=== PATIENT | female | born 1975 ===

== ENCOUNTER 2021-10-18 12:57 | Emergency (ER) | payer SELFPAY ==
[2021-10-18] MEDS ORDERED: IPRATROPIUM 0.02% NEBU 2.5 ML IH ONE (15:53)
[2021-10-18] MEDS ORDERED: ALBUTEROL 2.5 MG/3 ML NEBU IH ONE (15:53)
[2021-10-18] MEDS ORDERED: ONDANSETRON 4 MG ODT TAB PO ONE (15:55)
[2021-10-18] MEDS ORDERED: dexAMETHasone 4 MG/ML VIAL IM ONE (15:55)
--- NOTE | 2021-10-18 16:24 | XRay Report ---
CHEST 2 VIEWS INDICATION / CLINICAL INFORMATION: Dyspnea. COMPARISON: None available. FINDINGS: SUPPORT DEVICES: None. HEART / MEDIASTINUM: No significant abnormality. LUNGS / PLEURA: No significant pulmonary or pleural abnormality. No pneumothorax. ADDITIONAL FINDINGS: No significant additional findings. IMPRESSION: 1. No significant abnormality. Signer Name: Arely Lo MD Signed: 10/18/2021 4:20 PM Workstation Name: [id number]
--- NOTE | 2021-10-18 17:18 | Emergency Department Report ---
ED Shortness of Breath HPI - General Chief Complaint: Dyspnea/Respdistress Stated Complaint: ASTHMA/VOMITTING/SWOLLEN GLAND/COUGHING Time Seen by Provider: 10/18/21 15:45 Source: patient Mode of arrival: Ambulatory Limitations: No Limitations - History of Present Illness Initial Comments: pt presents to ed with complaint of asthma flare up. MD Complaint: shortness of breath -: Gradual, days(s) Improves With: oxygen, bronchodilators Worsens With: exertion Known History Of: asthma Context: recent URI - Related Data Previous Rx's Medication Instructions Recorded Last Taken Type Albuterol Mdi (or & Nicu Only) 2 puff IH QID PRN #8.5 gram 10/18/21 Unknown Rx [ProAir HFA Inhaler] Azithromycin [Zithromax Z-TRACY] 250 mg PO DAILY #6 10/18/21 Unknown Rx Ondansetron [Zofran Odt] 4 mg PO Q8HR #14 tab.rapdis 10/18/21 Unknown Rx methylPREDNISolone [Medrol 4MG 4 mg PO DAILY #1 10/18/21 Unknown Rx DOSEPAK (21 tabs)] Allergies Allergy/AdvReac Type Severity Reaction Status Date / Time No Known Allergies Allergy Verified 10/18/21 13:55 ED Review of Systems ROS: Stated complaint: ASTHMA/VOMITTING/SWOLLEN GLAND/COUGHING Other details as noted in HPI Constitutional: denies: chills, fever Eyes: denies: eye pain, eye discharge, vision change ENT: denies: ear pain, throat pain Respiratory: denies: cough, shortness of breath, wheezing Cardiovascular: denies: chest pain, palpitations Endocrine: no symptoms reported Gastrointestinal: denies: abdominal pain, nausea, diarrhea Genitourinary: denies: urgency, dysuria, discharge Musculoskeletal: denies: back pain, joint swelling, arthralgia Skin: denies: rash, lesions Neurological: denies: headache, weakness, paresthesias Psychiatric: denies: anxiety, depression Hematological/Lymphatic: denies: easy bleeding, easy bruising ED Past Medical Hx - Past Medical History Previous Medical History?: No Hx Hypertension: No Hx CVA: No Hx Asthma: Yes - Social History Smoking Status: Former Smoker Substance Use Type: None - Medications Home Medications: Home Medications Medication Instructions Recorded Confirmed Last Taken Type Albuterol Mdi (or & Nicu Only) 2 puff IH QID PRN #8.5 gram 10/18/21 Unknown Rx [ProAir HFA Inhaler] Azithromycin [Zithromax Z-TRACY] 250 mg PO DAILY #6 10/18/21 Unknown Rx Ondansetron [Zofran Odt] 4 mg PO Q8HR #14 tab.rapdis 10/18/21 Unknown Rx methylPREDNISolone [Medrol 4MG 4 mg PO DAILY #1 10/18/21 Unknown Rx DOSEPAK (21 tabs)] ED Physical Exam - General Limitations: No Limitations General appearance: alert, in no apparent distress - Head Head exam: Present: atraumatic, normocephalic - Eye Eye exam: Present: normal appearance - ENT ENT exam: Present: mucous membranes moist - Neck Neck exam: Present: normal inspection - Respiratory Respiratory exam: Present: normal lung sounds bilaterally. Absent: respiratory distress - Cardiovascular Cardiovascular Exam: Present: regular rate, normal rhythm. Absent: systolic murmur, diastolic murmur, rubs, gallop - GI/Abdominal GI/Abdominal exam: Present: soft, normal bowel sounds - Extremities Exam Extremities exam: Present: normal inspection - Back Exam Back exam: Present: normal inspection - Neurological Exam Neurological exam: Present: alert, oriented X3 - Psychiatric Psychiatric exam: Present: normal affect, normal mood - Skin Skin exam: Present: warm, dry, intact, normal color. Absent: rash ED Course Vital Signs 10/18/21 10/18/21 10/18/21 13:55 16:37 16:39 Temperature 98.6 F 98.6 F 98.6 F Pulse Rate 100 H 88 81 Respiratory 16 20 18 Rate Blood Pressure 122/59 Blood Pressure 136/87 125/69 [Left] O2 Sat by Pulse 100 100 100 Oximetry ED Medical Decision Making - Medical Decision Making vss no distress, x ray clear , rt steriods given Critical care attestation.: If time is entered above; I have spent that time in minutes in the direct care of this critically ill patient, excluding procedure time. ED Disposition Clinical Impression: Asthma exacerbation Disposition: 01 HOME / SELF CARE / HOMELESS Is pt being admited?: No Does the pt Need Aspirin: No Condition: Stable Instructions: Asthma, Adult Referrals: PRIMARY CARE, [Primary Care Provider] - 3-5 Days
[2021-10-18 17:29] VITALS: BP 124/78
== END 2021-10-18 17:28 | disposition home or self-care (01) ==
LOC: ED 12:57
DX: J45.909 Unspecified asthma, uncomplicated (principal); Z87.891 Personal history of nicotine dependence
CPT/HCPCS: 71046; 94640; 96372; 99283; J1100; J3490; Q0162